=== PATIENT | female | born 1995 | race Caucasian/White ===

== ENCOUNTER 2017-02-03 17:40 | Emergency (ER) | payer OTHER ==
[~2017-02-03] VITALS: Ht 170.2 cm; Wt 86.0 kg
[~2017-02-03 17:40] MED LIST: BACT800T5 PO; CEPH-460 PO
[2017-02-03 17:47] VITALS: BP 143/72; PULSE 119; RESP 20; TEMP 98.8; O2SAT 97
[2017-02-03] MEDS ORDERED: SODIUM CHLOR 0.9% 1000 ML INJ 1,000 ML IV SCH (18:14)
[2017-02-03] MEDS ORDERED: KETOROLAC TROMETHAMINE 30 MG/ML (IVP) VIAL IVP ONE (18:15)
[2017-02-03] MEDS ORDERED: OSEL75 PO (18:46)
[2017-02-03] MEDS ORDERED: GUAISYP4 PO (18:46)
--- NOTE | 2017-02-03 18:52 | PD ---
HPI Chief Complaint: Fever Time Seen by Provider: 18:47 Travel History International Travel<30 days: No Contact w/Intl Traveler<30days: No Traveled to known affect area: No History of Present Illness HPI 21-year-old female that presents to the ED for evaluation of cold-like symptoms since yesterday. Per patient she's had a cough and runny nose as well as some chest pain with cough as well as with deep breaths. Per patient she had the flu shot this year. She denies any shortness of breath. No history of asthma or smoking. 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 She has no allergies to medication. She's been taking Motrin and Tylenol with some relief but she is concerned because his symptoms are not improving and she also was required by her job to be seen because of missing work. She has no allergies to medication. No other medical problems. She states having a sore throat as well as congestion and runny nose. No ear pain. PFSH Past Medical History Medical History: Denies Significant Hx Autoimmune Disease: No Cardiovascular Problems: No Developmental Delay: No Diminished Hearing: No Gastrointestinal Disorders: No Genitourinary: No Musculoskeletal: No Neurologic: No Psychiatric: No Reproductive: No Respiratory: No Immunizations Current: Yes ?: Not LMP: JANUARY 2017 Past Surgical History Other Surgery: Yes (BACK BENIGN TUMOR) Social History Alcohol Use: No Tobacco Use: No Substance Use: No Allergies-Medications (Allergen,Severity, Reaction): Coded Allergies: No Known Allergies (Unverified , 02/03/17) Reported Meds & Prescriptions Reported Meds & Active Scripts Active Guaifenesin AC Liq (Guaifenesin-Codeine Liq) 100-10 Mg/5 Ml Syrp 5 Ml PO Q6H PRN Tamiflu (Oseltamivir Phosphate) 75 Mg Cap 75 Mg PO BID 5 Days Keflex (Cephalexin) 500 Mg Cap 500 Mg PO Q6H 10 Days Bactrim DS (Sulfamethoxazole-Trimethoprim) 800-160 Mg Tab 1 Tab PO BID Review of Systems General / Constitutional: Positive: Fever, Chills, No: Weight Gain, Weight Loss, Other Eyes: No: Diploplia, Blurred Vision, Photophobia, Drainage, Redness, Foreign Body Sensation, Pain, Tearing, Blind Spots, Visual changes, Blindness, Other HENT: Positive: Headaches, Sore Throat, Congestion, No: Vertigo, Lightheadedness, Rhinitis, Rhinorrhea, Nosebleed, Neck Stiffness, Neck Pain, Masses, Gingival Bleeding, Dental Difficulties, Ear Discharge, Earache, Other Cardiovascular: Positive: Chest Pain or Discomfort, No: Palpitations, Irregular Rhythm, Tachycardia, Diaphoresis, Syncope, Dyspnea on exertion, Varicosities, Edema, Cyanosis, Varicosities, Phlebitis, Claudication, Other Respiratory: Positive: Cough, No: Shortness of Breath, Wheezing, Sneezing, Orthopnea, Hemoptysis, Stridor, Night Sweats, Pleuritic Pain, Other Gastrointestinal: No: Nausea, Vomiting, Diarrhea, Abdominal Pain, Hematemesis, Hematochezia, Constipation, Changes in Bowel Habits, Indigestion, Dysphagia, Loss of Appetite, Other Genitourinary: No: Urgency, Frequency, Dysuria, Nocturia, Hematuria, Decreased Urinary Output, Oliguria, Hesitancy, Dribbling, Incontinence, Pelvic Pain, Flank Pain, Dyspareunia, Discharge, Dysmenorrhea, Menorrhagia, Metorrhagia, Vaginal Bleeding, Other Musculoskeletal: No: Myalgias, Arthralgias, Limited ROM, Weakness, Cramping, Edema, Pain, Atrophy, Other Skin: No Rash, No Itching, No Dryness, No Lumps, No Hives, No Change in Pigmentation, No Change in nails, No Alopecia, No Lesions, No Breast Lumps, No Breast Tenderness, No Breast Swelling, No Other Neurologic: No: Weakness, Dizziness, Syncope, Focal Abnormalities, Coordination Problem, Tremor, Ataxia, Headache, Change in Mentation, Slurred Speech, Paresthesia, Incontinence, Seizures, Sensory Disturbance, Other Psychiatric: No: Anxiety, Depression, Suicidal Ideations, Disorder of Thought, Mood Disorder, Substance Abuse, Homicidal Ideation, Other Endocrine: No: Heat Intolerance, Cold Intolerance, Polyuria, Polydipsia, Other Hematologic/Lymphatic: No: Easy Bruising, Lymph Node Enlargement, Other Physical Exam Narrative GENERAL: Well-nourished, well-developed patient in no apparent distress. SKIN: Warm and dry. HEAD: Atraumatic. Normocephalic. EYES: Pupils equal and round reactive to light and accommodation. No scleral icterus. No injection or drainage. ENT: No nasal bleeding or discharge. Mucous membranes pink and moist. TMs are clear with no sign of infection or perforation. No mastoid tenderness. Ear canals are intact bilaterally. No lymphadenopathy. Nostril mucosa is red and moist with clear mucus noted. No sinus tenderness to palpation noted. Tonsils are not enlarged or swollen. No ulvua Deviation. Tongue is midline. NECK: Trachea midline. No JVD. No meningeal signs noted CARDIOVASCULAR: Regular rate and rhythm. RESPIRATORY: No accessory muscle use. Clear to auscultation. Breath sounds equal bilaterally. GASTROINTESTINAL: Abdomen soft, non-tender, nondistended. Hepatic and splenic margins not palpable. MUSCULOSKELETAL: Extremities without clubbing, cyanosis, or edema. No obvious deformities. NEUROLOGICAL: Awake and alert. No obvious cranial nerve deficits. Motor grossly within normal limits. Five out of 5 muscle strength in the arms and legs. Normal speech. PSYCHIATRIC: Appropriate mood and affect; insight and judgment normal. Data Data Last Documented VS Vital Signs Date Time Temp Pulse Resp B/P Pulse Ox O2 Delivery O2 Flow Rate FiO2 02/03/17 18:08 122 18 98 Room Air 02/03/17 17:47 98.8 143/72 Orders Influenzae A/B Antigen (02/03/17 17:55) Chest, Single Ap (02/03/17 ) Sodium Chlor 0.9% 1000 Ml Inj (Ns 1000 M (02/03/17 18:14) Ketorolac Inj (Toradol Inj) (02/03/17 18:15) MDM Medical Decision Making Medical Screen Exam Complete: Yes Emergency Medical Condition: Yes Medical Record Reviewed: Yes Interpretation(s) Influenza positive for type B Chest x-ray negative. Differential Diagnosis Influenza versus pneumonia versus bronchitis versus sinusitis Narrative Course 21-year-old female that presents to the ED for evaluation of cold-like symptoms. Patient was properly examined and was found to have signs and symptoms consistent what appears to be possible flu. Labs were ordered. Labs show positive for flu. Patient was reassured. At this time patient will likely benefit from Tamiflu. Patient was given prescription for Tamiflu. Given prescription for cough medicine. Patient was told to take OTC medicines as needed. Given note for work. See ED worsening symptoms. Diagnosis Primary Impression: Influenza B Patient Instructions: General Instructions Departure Forms: Tests/Procedures, Work Release Enter return to work date: Feb 07, 2017 Additional Instructions: Motrin and Tylenol for pain and fever. You can use [id number] antihistamine as well as well as Mucinex as needed for runny nose and congestion. Cough drops for cough as needed. Drink plenty of fluids. Follow-up with PCP. See ED for worsening symptoms. Med/Other Pt SpecificInfo: Prescription(s) given Scripts Guaifenesin-Codeine Liq (Guaifenesin AC Liq)100-10 Mg/5 Ml Syrp5 Ml PO Q6H PRN ( COUGH) #1 BOTTLE Ref 0 Prov:Darnell Cruz MD 02/03/17 Oseltamivir (Tamiflu)75 Mg Cap75 Mg PO BID 5 Days Ref 0 Prov:Darnell Cruz MD 02/03/17 Disposition: 01 DISCHARGE HOME Condition: Stable Nito Hernandez Feb 03, 2017 18:52
--- NOTE | 2017-02-03 18:57 | RADRPT ---
EXAM DATE/TIME: 02/03/2017 18:34 [facility] COMPARISON: No previous studies available for comparison. INDICATIONS : Chest pain, Cough. MEDICAL HISTORY : None. SURGICAL HISTORY : None. ENCOUNTER: Initial ACUITY: 1 day PAIN SCORE: 5/10 LOCATION: Bilateral chest FINDINGS: The lungs are clear without infiltrate, nodule, or mass. There is no appreciable pleural effusion fo r technique. Heart and mediastinum are unremarkable. CONCLUSION: No acute cardiopulmonary disease. Bony Frances MD on February 03, 2017 at 18:55 Board Certified Radiologist. This report was verified electronically.
[2017-02-03 19:24] VITALS: BP 132/72; PULSE 114; RESP 18; O2SAT 98
[2017-02-03] MEDS ORDERED: OSELTAMIVIR PHOSPHATE 75 MG CAP PO ONE (19:45)
== END 2017-02-03 20:10 | disposition home or self-care (01) ==
LOC: NEPE 17:40
DX: J10.1 Influenza due to other identified influenza virus with other respiratory manifestations (principal)
CPT/HCPCS: 71010; 87804; 96374; 99284; J1885; J7030

== ENCOUNTER 2017-06-24 16:48 | Emergency (ER) | payer OTHER ==
[~2017-06-24] VITALS: Ht 170.2 cm; Wt 97.3 kg
[~2017-06-24 16:48] MED LIST changes: +GUAISYP4 PO; +OSEL75 PO
[2017-06-24 16:57] VITALS: BP 125/80; PULSE 99; RESP 20; TEMP 98.8; O2SAT 99
--- NOTE | 2017-06-24 17:48 | PD ---
HPI Chief Complaint: Dizziness Time Seen by Provider: 17:47 Travel History International Travel<30 days: No Contact w/Intl Traveler<30days: No Traveled to known affect area: No History of Present Illness HPI Patient is a 21-year-old female presents emergency department for evaluation of dizziness. Patient states that the majority of her symptoms are vertiginous in nature, she states when she first gets up in the morning she feels like the room is spinning, she also states that she felt it was so severe once that she was going to pass out. Denies palpitations chest pain shortness of breath abdominal pain heavy vaginal bleeding. States symptoms been going on and off for her entire life and she seen multiple specialists including ear nose and throat doctor. She thinks that she's had an MRI in the past as well which was unfruitful. She is not tried anything for her symptoms. 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 States her current symptoms are going on and off for the past week. Worsens when she was her head [id number] PFSH Past Medical History Autoimmune Disease: No Cardiovascular Problems: No Developmental Delay: No Diminished Hearing: No Gastrointestinal Disorders: No Genitourinary: No Medical other: Yes (hx vertigo as a child) Musculoskeletal: No Neurologic: No Psychiatric: No Reproductive: No Respiratory: No Immunizations Current: Yes ?: Not LMP: 3 WEEKS AGO Past Surgical History Other Surgery: Yes (BACK BENIGN TUMOR) Social History Alcohol Use: No Tobacco Use: No Substance Use: No Allergies-Medications (Allergen,Severity, Reaction): Coded Allergies: No Known Allergies (Unverified , 02/03/17) Reported Meds & Prescriptions Reported Meds & Active Scripts Active Zofran Odt (Ondansetron Odt) 4 Mg Tab 4 Mg SL Q6HR PRN Meclizine (Meclizine HCl) 25 Mg Tab 25 Mg PO TID PRN Review of Systems Except as stated in HPI: all other systems reviewed are Neg Physical Exam Narrative GENERAL: Well-developed well-nourished distress SKIN: Focused skin assessment warm/dry. HEAD: Atraumatic. Normocephalic. EYES: Pupils equal and round. No scleral icterus. No injection or drainage. ENT: No nasal bleeding or discharge. Mucous membranes pink and moist. TMs clear bilaterally. NECK: Trachea midline. No JVD. CARDIOVASCULAR: Regular rate and rhythm. No murmur appreciated. RESPIRATORY: No accessory muscle use. Clear to auscultation. Breath sounds equal bilaterally. GASTROINTESTINAL: Abdomen soft, non-tender, nondistended. Hepatic and splenic margins not palpable. MUSCULOSKELETAL: No obvious deformities. No clubbing. No cyanosis. No edema. NEUROLOGICAL: Awake and alert. Cranial nerves II through XII are grossly intact and nonfocal, 5 out of 5 strength in all 4 extremity's, Merriman-Hallpike is negative. No nystagmus. Cerebellar testing negative. PSYCHIATRIC: Appropriate mood and affect; insight and judgment normal. Data Data Last Documented VS Vital Signs Date Time Temp Pulse Resp B/P Pulse Ox O2 Delivery O2 Flow Rate FiO2 06/24/17 16:57 98.8 99 20 125/80 99 Orders Electrocardiogram (06/24/17 ) Meclizine (Antivert) (06/24/17 18:00) [facility] Medical Decision Making Medical Screen Exam Complete: Yes Emergency Medical Condition: Yes Interpretation(s) EKG shows normal sinus rhythm normal axis and normal hour progression. No concerning ST segment changes. Intervals within normal limits. This normal EKG. Differential Diagnosis BPPV, central vertigo highly unlikely, intracranial abnormality highly unlikely , MS possible but highly unlikely. Narrative Course 21-year-old female roomed emergency department, given meclizine and beginning to feel better. She is concerned because she gets nauseous at work and doesn't believe she can go through the cords. I offered her test and she declined at this time. She's not having abdominal pain. I discussed with her my differential diagnosis recommended a meclizine trial as well as establishing with a primary care physician. She does have health insurance and think she can do that relatively easily. I discussed with her that at this time recommended symptomatic management and return to work and she is agreeable. Discussed return to ED criteria. I discussed with her that if her symptoms don' t resolve that she may need an MRI in the future. She is stable for discharge. Diagnosis Primary Impression: Vertigo Additional Instructions: Recommended follow-up the primary care physician at the symptoms do not resolve you may need an MRI. Try meclizine and calli maneuvers. Med/Other Pt SpecificInfo: Prescription(s) given Scripts Ondansetron Odt (Zofran Odt)4 Mg Tab4 Mg SL Q6HR PRN (Nausea/Vomiting) #30 TAB Ref 0 Prov:Al Fritz MD 06/24/17 Meclizine 25 Mg Tab25 Mg PO TID PRN (VERTIGO) #30 TAB Ref 0 Prov:Al Fritz MD 06/24/17 Disposition: 01 DISCHARGE HOME Condition: Stable Al Fritz MD Jun 24, 2017 17:48
[2017-06-24] MEDS ORDERED: MECLIZINE HCL 25 MG TAB PO ONE (18:00)
[2017-06-24] MEDS ORDERED: MECL-62 PO (18:36)
[2017-06-24] MEDS ORDERED: ZOFR4TAB3 SL (18:46)
--- NOTE | 2017-06-25 11:38 | EKG ---
Date Performed: 06/24/2017 Time Performed: 17:59:14 PTAGE: 21 years EKG: Sinus rhythm NORMAL ECG Compared to prior tracing no significant change PREVIOUS TRACING : 01/09/2014 15.56 DOCTOR: Binh Floyd Interpretating Date/Time 06/25/2017 11:37:12
== END 2017-06-24 19:03 | disposition home or self-care (01) ==
LOC: PHED 16:48
DX: R42 Dizziness and giddiness (principal)
CPT/HCPCS: 93005; 99284

== ENCOUNTER 2017-09-18 12:28 | Emergency (ER) | payer OTHER ==
[~2017-09-18] VITALS: Ht 170.2 cm; Wt 90.0 kg
[~2017-09-18 12:28] MED LIST changes: -BACT800T5 PO; -CEPH-460 PO; -GUAISYP4 PO; +MECL-62 PO; -OSEL75 PO; +ZOFR4TAB3 SL
[2017-09-18 12:29] VITALS: BP 136/82; PULSE 92; RESP 18; TEMP 98.9; O2SAT 95
--- NOTE | 2017-09-18 13:07 | PD ---
HPI Chief Complaint: Cold / Flu Symptoms Time Seen by Provider: 12:51 Travel History International Travel<30 days: No Contact w/Intl Traveler<30days: No Traveled to known affect area: No History of Present Illness HPI 22-year-old female presents to emergency Department with complaint of cough, sore throat, right ear pain, fevers 3 days. Reports MAXIMUM TEMPERATURE of 101.2 last night. Denies chest pain, shortness of breath, chest tightness, wheezing. Denies abdominal pain, vomiting. Denies Nasal congestion. Has been taking NyQuil and DayQuil for symptom management. Received influenza vaccine 1 month ago. No known aggravating or relieving factors. No known allergies. Has no other medical complaints. No other modifying factors or associated signs and symptoms. PFSH Past Medical History Autoimmune Disease: No Cardiovascular Problems: No Developmental Delay: No Diminished Hearing: No Gastrointestinal Disorders: No Genitourinary: No Musculoskeletal: No Neurologic: No Psychiatric: No Reproductive: No Respiratory: No Immunizations Current: Yes ?: Not LMP: JUL 2017 Past Surgical History Other Surgery: Yes (BACK BENIGN TUMOR) Social History Alcohol Use: No Tobacco Use: No Substance Use: No Allergies-Medications (Allergen,Severity, Reaction): Coded Allergies: No Known Allergies (Verified Adverse Reaction, Unknown, 09/18/17) Reported Meds & Prescriptions Reported Meds & Active Scripts Active Azithromycin 500 Mg Tab 500 Mg PO DAILY Review of Systems Except as stated in HPI: all other systems reviewed are Neg Physical Exam Narrative GENERAL: Well-nourished, well-developed female patient, in no acute distress; afebrile, nontoxic-appearing SKIN: Warm and dry. No rash. HEAD: Atraumatic. Normocephalic. EYES: Pupils equal and round. No scleral icterus. No injection or drainage. ENT: Mucosa pink and moist. No erythema or exudates. No uvular edema. No uvular , palatal, or tonsillar deviation. Airway patent. EARS: Bilateral pinnae and external canals appear within normal limits. Bilateral tympanic membranes without erythema, dullness or perforation. NECK: Trachea midline. No lymphadenopathy. CARDIOVASCULAR: Regular rate and rhythm. No murmur appreciated. RESPIRATORY: No accessory muscle use. Clear to auscultation. Breath sounds equal bilaterally. No retractions or tachypnea. GASTROINTESTINAL: Abdomen soft, non-tender, nondistended. Hepatic and splenic margins not palpable. Bowel sounds are active 4 quadrants. MUSCULOSKELETAL: No obvious deformities. No clubbing. No cyanosis. No edema. NEUROLOGICAL: Awake and alert. Oriented 3. No obvious cranial nerve deficits. Motor grossly within normal limits. Normal speech. Moves all extremities. 5/5 strength to all extremities. PSYCHIATRIC: Appropriate mood and affect; insight and judgment normal. Data Data Last Documented VS Vital Signs Date Time Temp Pulse Resp B/P (MAP) Pulse Ox O2 Delivery O2 Flow Rate FiO2 09/18/17 12:29 98.9 92 18 136/82 (100) 95 Orders Orders Group A Rapid Strep Screen (09/18/17 13:06) Chest, Pa & Lat (09/18/17 13:06) Influenzae A/B Antigen (09/18/17 13:06) Strep Culture (Group A) (09/18/17 13:15) MDM Medical Decision Making Medical Screen Exam Complete: Yes Emergency Medical Condition: Yes Medical Record Reviewed: Yes Differential Diagnosis Influenza, strep pharyngitis, pneumonia Narrative Course 22-year-old female with cold/flu/cough symptoms 3 days. Reports MAXIMUM TEMPERATURE of 101.2. Is also complaining of sore throat. Patient is afebrile and nontoxic appearing at this time. Denies vomiting. Rapid strep, influenza, chest x-ray ordered. I offered the patient pain medication and she declined. 1347: Chest x-ray concludes: Chest X-Ray 09/18/17 1306 Signed Impressions: Service Date/Time: Monday, September 18, 2017 13:25 - CONCLUSION: Multiple changes lingula suspicious for an infiltrate. Moustapha Dugan MD FACR X-ray findings discussed with the patient. 1402: Plan send rapid strep negative. Azithromycin prescribed for home. Instructed patient to follow up with one week with primary care provider for reevaluation. Instructed patient to follow up with primary care provider. Patient verbalizes understanding and agreement with treatment plan. Patient is medically cleared and stable for discharge. Discussed reasons to return to the emergency department. Patient agrees with treatment plan. The patients vital signs are stable and the patient is stable for outpatient follow-up and treatment. Patient discharged home, stable and in no acute distress. Diagnosis Primary Impression: Pneumonia Qualified Codes: J18.1 - Lobar pneumonia, unspecified organism Referrals: [facility] Primary Care Physician Patient Instructions: Community Acquired Pneumonia (ED), General Instructions Departure Forms: Tests/Procedures, Work Release Enter return to work date: Sep 21, 2017 Additional Instructions: Ibuprofen or Tylenol as instructed and as needed for fever/pain [id number] cough and cold medications as directed and as needed for symptom management Get plenty of sleep/rest Drink plenty of fluids to prevent dehydration; popsicles and Gatorade Use an air humidifier/turn off ceiling fans Follow-up with primary care provider in one week for reevaluation Follow-up with primary care provider Return immediately to the emergency department with worsening of symptoms Med/Other Pt SpecificInfo: Prescription(s) given Scripts Azithromycin (Azithromycin) 500 Mg Tab 500 MG PO DAILY for Infection, #5 TAB 0 Refills Prov: Latisha Payne 09/18/17 Disposition: 01 DISCHARGE HOME Condition: Stable Latisha Payne Sep 18, 2017 13:07
--- NOTE | 2017-09-18 13:39 | RADRPT ---
EXAM DATE/TIME: 09/18/2017 13:25 [facility] COMPARISON: No previous studies available for comparison. INDICATIONS : Fever MEDICAL HISTORY : None. SURGICAL HISTORY : None. ENCOUNTER: Initial ACUITY: 4 - 6 days PAIN SCORE: 0/10 LOCATION: Bilateral chest FINDINGS: Minimal parenchymal changes left lower lobe . Right lung is clear. The heart and pulmonary vascularit y are normal. The portion of the bony skeleton visualized is unremarkable. CONCLUSION: Multiple changes lingula suspicious for an infiltrate. Moustapha Dugan MD FACR on September 18, 2017 at 13:36 Board Certified Radiologist. This report was verified electronically.
[2017-09-18] MEDS ORDERED: AZIT500T2 PO (13:53)
== END 2017-09-18 14:12 | disposition home or self-care (01) ==
LOC: NEPK 12:28
DX: J18.9 Pneumonia, unspecified organism (principal); H92.01 Otalgia, right ear
CPT/HCPCS: 71020; 87081; 87804; 87880; 99284

== ENCOUNTER 2017-10-23 11:48 | Emergency (ER) | payer OTHER ==
[~2017-10-23] VITALS: Ht 170.2 cm; Wt 92.2 kg
[~2017-10-23 11:48] MED LIST changes: +AZIT500T2 PO; -MECL-62 PO; -ZOFR4TAB3 SL
[2017-10-23 11:49] VITALS: BP 120/69; PULSE 85; RESP 18; TEMP 97.7; O2SAT 97
--- NOTE | 2017-10-23 12:04 | PD ---
HPI Chief Complaint: Back/ Neck Pain or Injury Time Seen by Provider: 11:56 Travel History International Travel<30 days: No Contact w/Intl Traveler<30days: No Traveled to known affect area: No History of Present Illness HPI 22-year-old female presents the emergency Department with several week history of lower left back pain. Seems aggravated by certain movements. Patient has tried Aleve intermittently without improvement. Patient denies nausea, vomiting, or urinary symptoms. Patient states she's been using heat with some improvement. Generalized pain is worsening over the last 2 weeks. She denies numbness or tingling in the left leg. She has no known drug allergies. PFSH Past Medical History Autoimmune Disease: No Cardiovascular Problems: No Developmental Delay: No Diminished Hearing: No Gastrointestinal Disorders: No Genitourinary: No Musculoskeletal: No Neurologic: No Psychiatric: No Reproductive: No Respiratory: No Immunizations Current: Yes ?: Unknown Past Surgical History Other Surgery: Yes (BACK BENIGN TUMOR) Social History Alcohol Use: No Tobacco Use: No Substance Use: No Allergies-Medications (Allergen,Severity, Reaction): Coded Allergies: No Known Allergies (Verified Adverse Reaction, Unknown, 10/23/17) Reported Meds & Prescriptions Reported Meds & Active Scripts Active Flexeril (Cyclobenzaprine HCl) 10 Mg Tab 10 Mg PO HS Ibuprofen 600 Mg Tab 600 Mg PO Q8H PRN Review of Systems Except as stated in HPI: all other systems reviewed are Neg General / Constitutional: No: Fever Eyes: No: Visual changes HENT: No: Headaches Cardiovascular: No: Chest Pain or Discomfort Respiratory: No: Shortness of Breath Gastrointestinal: No: Abdominal Pain Genitourinary: No: Dysuria Musculoskeletal: Positive: Myalgias, Arthralgias, Limited ROM, Pain (see history present illness) Skin: No Rash Neurologic: No: Weakness Psychiatric: No: Depression Endocrine: No: Polydipsia Hematologic/Lymphatic: No: Easy Bruising Physical Exam Narrative GENERAL: Patient appears no acute distress. SKIN: Warm and dry. Normal color. Normal turgor. No rash. HEAD: Atraumatic. Normocephalic. EYES: Pupils equal and round. No scleral icterus. No injection or drainage. ENT: No nasal bleeding or discharge. Mucous membranes pink and moist. NECK: Trachea midline. Supple and nontender. CARDIOVASCULAR: Regular rate and rhythm. RESPIRATORY: No accessory muscle use. Clear to auscultation. Breath sounds equal bilaterally. GASTROINTESTINAL: Abdomen soft, non-tender, nondistended. Hepatic and splenic margins not palpable. MUSCULOSKELETAL: Extremities without clubbing, cyanosis, or edema. No obvious deformities. Patient has soft tissue tenderness in the left lower lumbar/upper buttock region into the sciatic notch. It is worse with internal and external rotation of the hip consistent with iliopsoas syndrome. She has negative straight leg raise pain. NEUROLOGICAL: Awake and alert. No obvious cranial nerve deficits. Motor grossly within normal limits. Five out of 5 muscle strength in the arms and legs. Normal speech. PSYCHIATRIC: Appropriate mood and affect; insight and judgment normal. Data Data Last Documented VS Vital Signs Date Time Temp Pulse Resp B/P (MAP) Pulse Ox O2 Delivery O2 Flow Rate FiO2 10/23/17 11:49 97.7 85 18 120/69 (86) 97 Orders Orders Ed Discharge Order (10/23/17 12:11) [facility] Medical Decision Making Medical Screen Exam Complete: Yes Emergency Medical Condition: Yes Differential Diagnosis Left lower back pain. Sciatica. Iliopsoas syndrome. Muscle spasm. Narrative Course Patient is evaluated and no radiographic imaging is warranted clinically. Patient is felt to have an iliopsoas syndrome, and stretches are demonstrated the patient. Patient take ibuprofen 600 mg 3 times a day with food. #30. She also given Flexeril 10 mg daily at bedtime #10. Patient take Tylenol as well. Patient is to use heat followed by ice followed by regular stretching as discussed. Patient should follow up if symptoms do not improve or worsen as needed. Diagnosis Primary Impression: Strain of left iliopsoas muscle Qualified Codes: S76.912A - Strain of unspecified muscles, fascia and tendons at thigh level, left thigh, initial encounter Referrals: [facility] PO Patient Instructions: General Instructions, Hip Sprain (ED) Additional Instructions: Patient is evaluated and no radiographic imaging is warranted clinically. Patient is felt to have an iliopsoas syndrome, and stretches are demonstrated the patient. Patient take ibuprofen 600 mg 3 times a day with food. #30. She also given Flexeril 10 mg daily at bedtime #10. Patient take Tylenol as well. Patient is to use heat followed by ice followed by regular stretching as discussed. Patient should follow up if symptoms do not improve or worsen as needed. Med/Other Pt SpecificInfo: Prescription(s) given Scripts Cyclobenzaprine (Flexeril) 10 Mg Tab 10 MG PO HS for Muscle Spasm, #10 TAB 0 Refills Prov: Laron Finch MD 10/23/17 Ibuprofen (Ibuprofen) 600 Mg Tab 600 MG PO Q8H Y for PAIN, #30 TAB 0 Refills Prov: Laron Finch MD 10/23/17 Disposition: 01 DISCHARGE HOME Condition: Stable Zay Harman Oct 23, 2017 12:04
[2017-10-23] MEDS ORDERED: IBUP-232 PO (12:10)
[2017-10-23] MEDS ORDERED: CYCL10TA PO (12:10)
== END 2017-10-23 12:21 | disposition home or self-care (01) ==
LOC: PHEFT 11:48
DX: S76.912A Strain of unspecified muscles, fascia and tendons at thigh level, left thigh, initial encounter (principal)
CPT/HCPCS: 99283

== ENCOUNTER 2017-11-16 11:41 | Emergency (ER) | payer OTHER ==
[~2017-11-16] VITALS: Ht 170.2 cm; Wt 92.7 kg
[~2017-11-16 11:41] MED LIST changes: -AZIT500T2 PO; +CYCL10TA PO; +IBUP-232 PO
[2017-11-16 11:43] VITALS: BP 131/75; PULSE 88; RESP 16; TEMP 98.6; O2SAT 98
--- NOTE | 2017-11-16 12:15 | PD ---
HPI Chief Complaint: Cold / Flu Symptoms Time Seen by Provider: 12:03 Travel History International Travel<30 days: No Contact w/Intl Traveler<30days: No Traveled to known affect area: No History of Present Illness HPI The patient was seen and examined in the presence of the nurse. This patient complains of flulike symptoms. She has body aches and congestion and cough. No fever. 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 Breath sounds are clear and symmetric. SKIN: Focused skin assessment reveals no rash or ulcers. Skin is warm and dry. Palpation shows no induration or nodules. Throat clear TMs normal Data Data Last Documented VS Vital Signs Date Time Temp Pulse Resp B/P (MAP) Pulse Ox O2 Delivery O2 Flow Rate FiO2 11/16/17 11:48 Room Air 11/16/17 11:43 98.6 88 16 131/75 (93) 98 MDM Medical Decision Making Medical Screen Exam Complete: Yes Emergency Medical Condition: Yes Medical Record Reviewed: Yes Differential Diagnosis Flu syndrome, URI, myalgia Narrative Course I have reviewed the patient's electronic medical record. Presentation consistent with acute viral syndrome. Supportive care discussed. No indication for studies or antibiotics Diagnosis Primary Impression: Acute viral syndrome Additional Instructions: The patient was advised to follow up with their physician and return if they worsen. Med/Other Pt SpecificInfo: Other Disposition: 01 DISCHARGE HOME Condition: Stable Иван Tomlin MD Nov 16, 2017 12:15
== END 2017-11-16 12:48 | disposition home or self-care (01) ==
LOC: PHEFT 11:41
DX: B34.9 Viral infection, unspecified (principal); M79.1 Myalgia; R05 Cough
CPT/HCPCS: 99282

== ENCOUNTER 2018-02-13 13:53 | Emergency (ER) | payer SELFPAY ==
[~2018-02-13] VITALS: Ht 172.7 cm; Wt 88.0 kg
[2018-02-13 13:57] VITALS: BP 150/77; PULSE 109; RESP 17; TEMP 98.6; O2SAT 100
[2018-02-13] MEDS ORDERED: AMOX500C PO (16:40)
== END 2018-02-13 14:54 | disposition left against medical advice (07) ==
LOC: NED 13:53
DX: J00 Acute nasopharyngitis [common cold] (principal); Z53.21 Procedure and treatment not carried out due to patient leaving prior to being seen by health care provider
CPT/HCPCS: 99281

== ENCOUNTER 2018-02-13 15:30 | Emergency (ER) | payer OTHER ==
[~2018-02-13] VITALS: Ht 172.7 cm; Wt 88.0 kg
[2018-02-13 15:47] VITALS: BP 131/87; PULSE 96; RESP 16; TEMP 98.9; O2SAT 97
[2018-02-13] MEDS ORDERED: AMOX500C PO (16:40)
--- NOTE | 2018-02-13 16:41 | PD ---
HPI Chief Complaint: Cold / Flu Symptoms Time Seen by Provider: 16:24 Travel History International Travel<30 days: No Contact w/Intl Traveler<30days: No Traveled to known affect area: No History of Present Illness HPI 22-year-old female complains of left otalgia with a pressure-like sensation in fluid buildup behind the eardrum. She reports a popping sensation followed by bloody otorrhea with reduction of pain severity. Additional symptoms include cough and congestion. Rhinorrhea is reported. No fever. Duration 4 days. Multiple sick contacts reported. No shortness of breath or chest pain. 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) Social History Alcohol Use: No Tobacco Use: No Substance Use: No Allergies-Medications (Allergen,Severity, Reaction): Coded Allergies: No Known Allergies (Verified Adverse Reaction, Unknown, 02/13/18) Reported Meds & Prescriptions Reported Meds & Active Scripts Active Amoxicillin 500 Mg Cap 500 Mg PO BID 7 Days Review of Systems General / Constitutional: No: Fever, Chills HENT: Positive: Sore Throat, Rhinorrhea, Ear Discharge, Earache Physical Exam Narrative GENERAL: 22-year-old female well-nourished well-developed no acute distress Vital Signs Date Time Temp Pulse Resp B/P (MAP) Pulse Ox O2 Delivery O2 Flow Rate FiO2 02/13/18 15:47 98.9 96 16 131/87 (102) 97 SKIN: Warm and dry. HEAD: Atraumatic. Normocephalic. EYES: Pupils equal and round. No scleral icterus. No injection or drainage. ENT: No nasal bleeding or discharge. Mucous membranes pink and moist. Left tympanic membrane is not clearly visualized however there is a fair amount of dried blood about the external canal without erythema or edema. NECK: Trachea midline. No JVD. CARDIOVASCULAR: Regular rate and rhythm. RESPIRATORY: No accessory muscle use. Clear to auscultation. Breath sounds equal bilaterally. GASTROINTESTINAL: Abdomen soft, non-tender, nondistended. Hepatic and splenic margins not palpable. MUSCULOSKELETAL: Extremities without clubbing, cyanosis, or edema. No obvious deformities. NEUROLOGICAL: Awake and alert. No obvious cranial nerve deficits. Motor grossly within normal limits. Five out of 5 muscle strength in the arms and legs. Normal speech. PSYCHIATRIC: Appropriate mood and affect; insight and judgment normal. Data Data Last Documented VS Vital Signs Date Time Temp Pulse Resp B/P (MAP) Pulse Ox O2 Delivery O2 Flow Rate FiO2 02/13/18 15:47 98.9 96 16 131/87 (102) 97 Orders Orders Ed Discharge Order (02/13/18 16:41) MDM Medical Decision Making Medical Screen Exam Complete: Yes Emergency Medical Condition: Yes Medical Record Reviewed: Yes Differential Diagnosis Acute otitis media, influenza, sinus disease Narrative Course Pt with L acute otitis media with perforation. Amoxicillin script. Follow up with ENT as needed. Diagnosis Primary Impression: Acute otitis media Qualified Codes: H65.192 - Other acute nonsuppurative otitis media, left ear Referrals: Chris Pringle MD 2 days Med/Other Pt SpecificInfo: Prescription(s) given Scripts Amoxicillin (Amoxicillin) 500 Mg Cap 500 MG PO BID for Infection for 7 Days, #14 CAP 0 Refills Prov: Neftaly Bourgeois MD 02/13/18 Disposition: 01 DISCHARGE HOME Condition: Stable Neftaly Bourgeois MD Feb 13, 2018 16:41
== END 2018-02-13 17:23 | disposition home or self-care (01) ==
LOC: PHEFT 15:30
DX: H66.92 Otitis media, unspecified, left ear (principal); J02.9 Acute pharyngitis, unspecified; R05 Cough; R09.81 Nasal congestion; J34.89 Other specified disorders of nose and nasal sinuses
CPT/HCPCS: 99283

== ENCOUNTER 2018-03-27 08:31 | Emergency (ER) | payer OTHER ==
[~2018-03-27 08:31] MED LIST changes: +AMOX500C PO; -CYCL10TA PO; -IBUP-232 PO
[2018-03-27 08:33] VITALS: BP 134/66; PULSE 95; RESP 16; TEMP 97.4; O2SAT 97
[2018-03-27] MEDS ORDERED: CEPH-460 PO (09:00)
[2018-03-27] MEDS ORDERED: BACT800T5 PO (09:00)
[2018-03-27] MEDS ORDERED: CEPHALEXIN MONOHYDRATE 500 MG CAP PO ONE (09:00)
[2018-03-27] MEDS ORDERED: IBUPROFEN 800 MG TAB PO ONE (09:00)
[2018-03-27] MEDS ORDERED: SULFAMETHOXAZOLE-TRIMETHOPRIM DS 800-160 MG TAB PO ONE (09:00)
[2018-03-27] MEDS ORDERED: IBUP1TAB7 PO (09:00)
--- NOTE | 2018-03-27 09:01 | PD ---
HPI Chief Complaint: Skin Problem Time Seen by Provider: 08:40 Travel History International Travel<30 days: No Contact w/Intl Traveler<30days: No Traveled to known affect area: No History of Present Illness HPI 22-year-old female presents emergency department for evaluation of a painful lesion on her right medial thigh. It is constantly painful, throbbing, moderate in severity. She first thought it was an insect bite one week ago. It has increased in size and become more painful. Patient reports no fever or chills. Denies any drainage from the site. Does not recall an injury. She has no other symptoms to report. 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) Social History Alcohol Use: Yes (ocassional) Tobacco Use: No Substance Use: No Allergies-Medications (Allergen,Severity, Reaction): Coded Allergies: No Known Allergies (Verified Adverse Reaction, Unknown, 03/27/18) Reported Meds & Prescriptions Reported Meds & Active Scripts Active Keflex (Cephalexin) 500 Mg Cap 500 Mg PO Q6H 5 Days Bactrim DS (Sulfamethoxazole-Trimethoprim) 800-160 Mg Tab 1 Tab PO BID Ibuprofen 800 Mg Tab 800 Mg PO Q8H PRN Review of Systems Except as stated in HPI: all other systems reviewed are Neg Physical Exam Narrative GENERAL: Well-nourished, well-developed female patient in no acute distress SKIN: There is an indurated area in the right medial thigh which measures about 3 cm in diameter. It is fluctuant but there is no pointing or drainage. There is a zone of inflammation extending 10 cm in diameter around it but no lymphangitis. HEAD: Normocephalic. EYES: No scleral icterus. No injection or drainage. NECK: Supple, trachea midline. No JVD or lymphadenopathy. CARDIOVASCULAR: Regular rate RESPIRATORY: No accessory muscle use. MUSCULOSKELETAL: No cyanosis, or edema. BACK: without obvious deformity. Data Data Last Documented VS Vital Signs Date Time Temp Pulse Resp B/P (MAP) Pulse Ox O2 Delivery O2 Flow Rate FiO2 03/27/18 08:33 97.4 95 16 134/66 (88) 97 Orders Orders Wound Culture And Gram Stain (03/27/18 08:58) Ibuprofen (Motrin) (03/27/18 09:00) Sulfamet-Trimeth Ds 800-160 Mg (Bactrim (03/27/18 09:00) Cephalexin (Keflex) (03/27/18 09:00) Ed Discharge Order (03/27/18 09:01) MDM Medical Decision Making Medical Screen Exam Complete: Yes Emergency Medical Condition: Yes Medical Record Reviewed: Yes Differential Diagnosis Cellulitis versus abscess versus erysipelas versus folliculitis Narrative Course 22-year-old female presents emergency department for evaluation of a painful lesion on her right medial thigh. Physical exam is consistent with abscess. I& D is complete. Cultures obtained. Patient will be started on oral antibiotics and encouraged to follow-up with primary care provider. She agrees to return immediately with acute worsening symptoms. Procedures Procedure Narrative INCISION AND DRAINAGE OF ABSCESS: The area was prepped and was sterilely draped. Topical ethyl chloride was used to anesthetize the area. The area was properly anesthetized. A number 11 scalpel was used to make a 1-cm incision across the area of the abscess. Cultures were obtained. The abscess was drained an irrigated with normal saline. Sterile dressing is applied. Patient tolerated this well. Diagnosis Primary Impression: Abscess of thigh Referrals: Primary Care Physician Patient Instructions: Abscess Incision and Drainage (GEN), General Instructions Additional Instructions: WARM COMPRESSES TO THE AFFECTED AREA DO NOT SQUEEZE THE AREA FOLLOW UP WITH YOUR PRIMARY CARE PROVIDER RETURN TO ED WITH ACUTE WORSENING OF SYMPTOMS Med/Other Pt SpecificInfo: Prescription(s) given Scripts Cephalexin (Keflex) 500 Mg Cap 500 MG PO Q6H for Infection for 5 Days, #20 CAP 0 Refills Prov: Aisha Muse 03/27/18 Sulfamethoxazole-Trimethoprim (Bactrim DS) 800-160 Mg Tab 1 TAB PO BID for Infection, #20 TAB 0 Refills Prov: Aisha Muse 03/27/18 Ibuprofen (Ibuprofen) 800 Mg Tab 800 MG PO Q8H Y for Pain/Inflammation, #30 TAB 0 Refills Prov: Aisha Muse 03/27/18 Disposition: 01 DISCHARGE HOME Condition: Stable Aisha uMse March 27, 2018 09:01
== END 2018-03-27 09:31 | disposition home or self-care (01) ==
LOC: NEPD 08:31
DX: L02.415 Cutaneous abscess of right lower limb (principal); B95.62 Methicillin resistant Staphylococcus aureus infection as the cause of diseases classified elsewhere
CPT/HCPCS: 10060; 86403; 87070; 87186; 87205